=== PATIENT | female | born 1990 | race Caucasian/White ===

== ENCOUNTER → 2018-02-18 21:21 | Outpatient (CLI) | payer MEDICAID ==
[2018-02-18 22:19] LABS: APPEARANCE CLEAR (CLEAR); BILIRUBIN NEGATIVE (NEGATIVE); COLOR YELLOW (YELLOW); GLUCOSE NEGATIVE (NEGATIVE); KETONE MODERATE mg/dL (NEGATIVE); NITRITE NEGATIVE (NEGATIVE); PROTEIN NEGATIVE (NEGATIVE); UROBILINOGEN NORMAL (NORMAL)
[2018-02-18 22:23] LABS: WHITE CELLS - URINE 0-5 /hpf (0-5)
[2018-02-18 22:24] LABS: BACTERIA FEW /hpf (NONE SEEN); EPITHELIAL CELLS 0-5 /hpf (0-5); RED CELLS - URINE OCC /hpf (0-5)
[2018-02-18 23:36] LABS: HEMATOCRIT 35.5 % (36.0-48.0); HEMOGLOBIN 12.1 g/dL (12-16); LYMPHOCYTES 10.6 % (15-50); MCH 27.6 pg (26.0-34.0); MCHC 34.1 g/dL (31.0-37.0); MCV 80.9 fL (80.0-100.0); NEUTROPHILS 82.6 % (40-80); PLATELET COUNT 262 10x3/uL (130-400); RBC 4.39 10x6/uL (4.00-5.40); RDW 15.1 % (11.5-14.5)
[2018-02-18 23:46] LABS: ALBUMIN 2.9 g/dL (3.4-5.0); ALKALINE PHOSPHATASE 63 U/L (46-116); ALT (SGPT) 15 U/L (10-68); CALC OSMOLALITY 269 mosm/kg (275-300); CALCIUM 8.8 mg/dL (8.5-10.1); CARBON DIOXIDE 23.1 mmol/L (21.0-32.0); CHLORIDE - SERUM 103 mmol/L (98-107); CREATININE - SERUM 0.6 mg/dL (0.6-1.3); GLUCOSE 86 mg/dL (74-106); POTASSIUM - SERUM 3.9 mmol/L (3.5-5.1); PROTEIN - SERUM 7.2 g/dL (6.4-8.2); SODIUM 137 mmol/L (136-145); UREA NITROGEN 4 mg/dL (7-18); eGFR NON AFRICAN AMERICAN > 90 mL/min (90-120)
== END | disposition home or self-care (01) ==
LOC: OBSVTIME → D.LDO 21:21 → D.LD 23:31 → OBSVTIME 23:31 → D.LD 23:31
PROVIDERS: Obstetrics & Gynecology
DX: O26.892 Other specified pregnancy related conditions, second trimester (principal); Z3A.21 21 weeks gestation of pregnancy; R10.9 Unspecified abdominal pain; R19.7 Diarrhea, unspecified; R10.13 Epigastric pain

== ENCOUNTER 2018-02-19 00:21 | Outpatient (CLI) | payer MEDICAID ==
[2018-02-19 03:55] LABS: APPEARANCE CLEAR (CLEAR); BILIRUBIN NEGATIVE (NEGATIVE); COLOR YELLOW (YELLOW); GLUCOSE NEGATIVE (NEGATIVE); KETONE NEGATIVE (NEGATIVE); NITRITE NEGATIVE (NEGATIVE); PROTEIN NEGATIVE (NEGATIVE); SPECIFIC GRAVITY 1.005 (1.005-1.020); UROBILINOGEN NORMAL (NORMAL)
== END 2018-02-19 04:18 | disposition home or self-care (01) ==
LOC: D.LD 00:21 → D.LDO 00:21 → D.LD 02-20 11:07
PROVIDERS: Obstetrics & Gynecology
DX: O26.899 Other specified pregnancy related conditions, unspecified trimester (principal); Z3A.00 Weeks of gestation of pregnancy not specified

== ENCOUNTER → 2018-05-02 08:30 | Outpatient (CLI) | payer MEDICAID ==
[~2018-05-02 08:30] MED LIST: PRENATAL COMPLE1 TAB PO
[2018-05-02 09:18] LABS: BASOPHILS 0.1 % (0-2); EOSINOPHILS 0.6 % (0-7); HEMATOCRIT 30.7 % (36.0-48.0); HEMOGLOBIN 10.1 g/dL (12-16); IMMATURE GRANULOCYTES 1.5 % (0-5); LYMPHOCYTES 9.8 % (15-50); MCH 26.7 pg (26.0-34.0); MCHC 32.9 g/dL (31.0-37.0); MCV 81.2 fL (80.0-100.0); MONOCYTES 4.7 % (2-11); NEUTROPHILS 83.3 % (40-80); RBC 3.78 10x6/uL (4.00-5.40); RDW 13.4 % (11.5-14.5); WBC 14.4 10x3/uL (4.8-10.8)
[2018-05-02 09:26] LABS: PLATELET COUNT 330 10x3/uL (130-400)
[2018-05-02 09:53] LABS: ALBUMIN 2.5 g/dL (3.4-5.0); ALKALINE PHOSPHATASE 96 U/L (46-116); ALT (SGPT) 12 U/L (10-68); BILIRUBIN - DIRECT 0.05 mg/dL (0.00-0.30); BILIRUBIN - INDIRECT 0.15 mg/dL (0.00-1.00); CALC OSMOLALITY 274 mosm/kg (275-300); CALCIUM 8.7 mg/dL (8.5-10.1); CARBON DIOXIDE 21.5 mmol/L (21.0-32.0); CHLORIDE - SERUM 105 mmol/L (98-107); CREATININE - SERUM 0.6 mg/dL (0.6-1.3); GLUCOSE 83 mg/dL (74-106); POTASSIUM - SERUM 3.8 mmol/L (3.5-5.1); PROTEIN - SERUM 6.8 g/dL (6.4-8.2); SODIUM 139 mmol/L (136-145); UREA NITROGEN 6 mg/dL (7-18); eGFR NON AFRICAN AMERICAN > 90 mL/min (90-120)
[2018-05-02 09:54] LABS: URIC ACID 4.5 mg/dL (2.6-7.2)
[2018-05-03 09:07] LABS: PROTEIN - URINE 13.2 mg/dL (0.0-11.9)
[2018-06-20 15:44] VITALS: BMI 42.0
== END | disposition home or self-care (01) ==
LOC: D.LDO 08:30
PROVIDERS: Obstetrics & Gynecology
DX: O26.893 Other specified pregnancy related conditions, third trimester (principal); Z3A.31 31 weeks gestation of pregnancy

== ENCOUNTER → 2018-05-07 14:07 | Outpatient (CLI) | payer MEDICAID ==
[2018-06-20 15:44] VITALS: BMI 42.0
== END | disposition home or self-care (01) ==
LOC: D.LDO 14:07
DX: O14.93 Unspecified pre-eclampsia, third trimester (principal); Z3A.32 32 weeks gestation of pregnancy

== ENCOUNTER → 2018-05-10 15:11 | Outpatient (CLI) | payer MEDICAID ==
[2018-06-20 15:44] VITALS: BMI 42.0
== END | disposition home or self-care (01) ==
LOC: D.LDO 15:11
DX: O16.3 Unspecified maternal hypertension, third trimester (principal); Z3A.32 32 weeks gestation of pregnancy

== ENCOUNTER → 2018-05-14 10:50 | Outpatient (CLI) | payer MEDICAID ==
[2018-06-20 15:44] VITALS: BMI 42.0
== END | disposition home or self-care (01) ==
LOC: D.LDO 10:50
DX: O16.3 Unspecified maternal hypertension, third trimester (principal); Z3A.33 33 weeks gestation of pregnancy

== ENCOUNTER → 2018-05-15 09:07 | Outpatient (CLI) | payer OTHER ==
[2018-05-15 10:28] LABS: APPEARANCE HAZY (CLEAR); COLOR YELLOW (YELLOW); NITRITE NEGATIVE (NEGATIVE)
[2018-05-15 10:29] LABS: BACTERIA MODERATE /hpf (NONE SEEN); BILIRUBIN NEGATIVE (NEGATIVE); EPITHELIAL CELLS 0-5 /hpf (0-5); GLUCOSE NEGATIVE (NEGATIVE); KETONE SMALL mg/dL (NEGATIVE); PROTEIN NEGATIVE (NEGATIVE); RED CELLS - URINE RARE /hpf (0-5); UROBILINOGEN NORMAL (NORMAL)
[2018-05-15 10:30] LABS: MUCUS <1+ /lpf (NONE SEEN)
[2018-05-15 12:22] LABS: ALBUMIN 2.6 g/dL (3.4-5.0); ALKALINE PHOSPHATASE 101 U/L (46-116); ALT (SGPT) 12 U/L (10-68); BILIRUBIN - DIRECT 0.06 mg/dL (0.00-0.30); BILIRUBIN - INDIRECT 0.16 mg/dL (0.00-1.00); BILIRUBIN - TOTAL 0.22 mg/dL (0.2-1.3); CALC OSMOLALITY 271 mosm/kg (275-300); CARBON DIOXIDE 23.3 mmol/L (21.0-32.0); CHLORIDE - SERUM 103 mmol/L (98-107); CREATININE - SERUM 0.5 mg/dL (0.6-1.3); POTASSIUM - SERUM 4.2 mmol/L (3.5-5.1); SODIUM 138 mmol/L (136-145); UREA NITROGEN 8 mg/dL (7-18); URIC ACID 4.6 mg/dL (2.6-7.2); eGFR NON AFRICAN AMERICAN > 90 mL/min (90-120)
[2018-05-15 12:23] LABS: GLUCOSE 70 mg/dL (74-106)
[2018-05-15 13:21] LABS: BASOPHILS 0.1 % (0-2); EOSINOPHILS 1.2 % (0-7); HEMATOCRIT 32.5 % (36.0-48.0); HEMOGLOBIN 10.8 g/dL (12-16); IMMATURE GRANULOCYTES 0.8 % (0-5); LYMPHOCYTES 11.5 % (15-50); MCHC 33.2 g/dL (31.0-37.0); MCV 81.3 fL (80.0-100.0); MONOCYTES 5.3 % (2-11); NEUTROPHILS 81.1 % (40-80); PLATELET COUNT 285 10x3/uL (130-400); RDW 13.5 % (11.5-14.5); WBC 14.5 10x3/uL (4.8-10.8)
[2018-05-16 10:08] LABS: PROTEIN - URINE 12.9 mg/dL (0.0-11.9)
[2018-06-20 15:44] VITALS: BMI 42.0
== END | disposition home or self-care (01) ==
LOC: D.LDO 09:07
PROVIDERS: Obstetrics & Gynecology
DX: O26.893 Other specified pregnancy related conditions, third trimester (principal); Z3A.32 32 weeks gestation of pregnancy

== ENCOUNTER → 2018-05-17 16:13 | Outpatient (CLI) | payer OTHER ==
[2018-06-20 15:44] VITALS: BMI 42.0
== END | disposition home or self-care (01) ==
LOC: D.LDO 16:13
DX: O16.3 Unspecified maternal hypertension, third trimester (principal); Z3A.33 33 weeks gestation of pregnancy

== ENCOUNTER → 2018-05-20 14:50 | Outpatient (CLI) | payer OTHER ==
[2018-06-20 15:44] VITALS: BMI 42.0
== END | disposition home or self-care (01) ==
LOC: D.LDO 14:50
DX: O14.93 Unspecified pre-eclampsia, third trimester (principal); Z3A.34 34 weeks gestation of pregnancy

== ENCOUNTER → 2018-05-23 15:46 | Outpatient (CLI) | payer OTHER ==
[2018-06-20 15:44] VITALS: BMI 42.0
== END | disposition home or self-care (01) ==
LOC: D.LDO 15:46
DX: O14.93 Unspecified pre-eclampsia, third trimester (principal); Z3A.34 34 weeks gestation of pregnancy

== ENCOUNTER → 2018-05-27 13:43 | Outpatient (CLI) | payer OTHER ==
[2018-06-20 15:44] VITALS: BMI 42.0
== END | disposition home or self-care (01) ==
LOC: D.LDO 13:43
DX: O14.93 Unspecified pre-eclampsia, third trimester (principal); Z3A.35 35 weeks gestation of pregnancy

== ENCOUNTER → 2018-05-30 14:37 | Outpatient (CLI) | payer OTHER ==
[2018-06-20 15:44] VITALS: BMI 42.0
== END | disposition home or self-care (01) ==
LOC: D.LDO 14:37
DX: O36.8130 Decreased fetal movements, third trimester, not applicable or unspecified (principal); Z3A.35 35 weeks gestation of pregnancy

== ENCOUNTER → 2018-06-03 16:31 | Outpatient (CLI) | payer OTHER ==
[2018-06-20 15:44] VITALS: BMI 42.0
== END | disposition home or self-care (01) ==
LOC: D.LDO 16:31
DX: O10.913 Unspecified pre-existing hypertension complicating pregnancy, third trimester (principal); Z3A.36 36 weeks gestation of pregnancy

== ENCOUNTER → 2018-06-06 15:31 | Outpatient (CLI) | payer OTHER ==
[2018-06-20 15:44] VITALS: BMI 42.0
== END | disposition home or self-care (01) ==
LOC: D.LDO 15:31
DX: O26.893 Other specified pregnancy related conditions, third trimester (principal); Z3A.36 36 weeks gestation of pregnancy

== ENCOUNTER → 2018-06-10 12:20 | Outpatient (CLI) | payer OTHER ==
[2018-06-20 15:44] VITALS: BMI 42.0
== END | disposition home or self-care (01) ==
LOC: D.LDO 12:20
DX: O12.13 Gestational proteinuria, third trimester (principal); Z3A.37 37 weeks gestation of pregnancy

== ENCOUNTER → 2018-06-13 11:37 | Outpatient (CLI) | payer OTHER ==
[2018-06-20 15:44] VITALS: BMI 42.0
== END | disposition home or self-care (01) ==
LOC: D.LDO 11:37
DX: O16.3 Unspecified maternal hypertension, third trimester (principal); Z3A.37 37 weeks gestation of pregnancy

== ENCOUNTER → 2018-06-16 17:37 | Outpatient (CLI) | payer OTHER ==
[2018-06-16 18:36] LABS: BASOPHILS 0.2 % (0-2); EOSINOPHILS 1.4 % (0-7); HEMATOCRIT 30.1 % (36.0-48.0); HEMOGLOBIN 9.7 g/dL (12-16); LYMPHOCYTES 11.3 % (15-50); MCH 25.3 pg (26.0-34.0); MCHC 32.2 g/dL (31.0-37.0); MCV 78.4 fL (80.0-100.0); MONOCYTES 4.7 % (2-11); NEUTROPHILS 81.4 % (40-80); PLATELET COUNT 294 10x3/uL (130-400); RBC 3.84 10x6/uL (4.00-5.40); WBC 14.2 10x3/uL (4.8-10.8)
[2018-06-16 18:54] LABS: ALBUMIN 2.3 g/dL (3.4-5.0); ALKALINE PHOSPHATASE 118 U/L (46-116); ALT (SGPT) 12 U/L (10-68); BILIRUBIN - DIRECT 0.05 mg/dL (0.00-0.30); BILIRUBIN - INDIRECT 0.12 mg/dL (0.00-1.00); BILIRUBIN - TOTAL 0.17 mg/dL (0.2-1.3); CALC OSMOLALITY 269 mosm/kg (275-300); CALCIUM 8.5 mg/dL (8.5-10.1); CHLORIDE - SERUM 105 mmol/L (98-107); CREATININE - SERUM 0.5 mg/dL (0.6-1.3); GLUCOSE 93 mg/dL (74-106); POTASSIUM - SERUM 3.8 mmol/L (3.5-5.1); PROTEIN - SERUM 5.9 g/dL (6.4-8.2); SODIUM 136 mmol/L (136-145); UREA NITROGEN 6 mg/dL (7-18); URIC ACID 4.8 mg/dL (2.6-7.2); eGFR NON AFRICAN AMERICAN > 90 mL/min (90-120)
[2018-06-16 19:05] LABS: APPEARANCE HAZY (CLEAR); BILIRUBIN NEGATIVE (NEGATIVE); COLOR YELLOW (YELLOW); GLUCOSE NEGATIVE (NEGATIVE); KETONE NEGATIVE (NEGATIVE); NITRITE NEGATIVE (NEGATIVE); PROTEIN NEGATIVE (NEGATIVE); SPECIFIC GRAVITY 1.015 (1.005-1.020); UROBILINOGEN NORMAL (NORMAL)
[2018-06-16 19:08] LABS: BACTERIA MODERATE /hpf (NONE SEEN); MUCUS <1+ /lpf (NONE SEEN); RED CELLS - URINE OCC /hpf (0-5)
[2018-06-20 15:44] VITALS: BMI 42.0
== END | disposition home or self-care (01) ==
LOC: D.LDO 17:37
PROVIDERS: Obstetrics & Gynecology
DX: O16.3 Unspecified maternal hypertension, third trimester (principal); Z3A.37 37 weeks gestation of pregnancy; R51 Headache; H53.9 Unspecified visual disturbance; R11.0 Nausea; R60.0 Localized edema

== ENCOUNTER → 2018-06-18 14:30 | Outpatient (CLI) | payer OTHER ==
[2018-06-20 15:44] VITALS: BMI 42.0
== END | disposition home or self-care (01) ==
LOC: D.LDO 14:30
DX: O12.13 Gestational proteinuria, third trimester (principal); Z3A.38 38 weeks gestation of pregnancy

== ENCOUNTER 2018-06-20 15:10 | Inpatient (IN) | payer OTHER ==
[~2018-06-20] VITALS: Ht 172.7 cm; Wt 125.2 kg
--- NOTE | ~2018-06-20 | OP ---
PATIENT NAME: DENISE PAPPAS MEDICAL RECORD: [id number] :89 LOCATION:[id number] ADMISSION DATE:06/20/18 SURGEON: FÉLIX MADDOX MD DATE OF OPERATION: 06/21/2018 PREOPERATIVE DIAGNOSES: 1. Preeclampsia at term. 2. Non-reassuring tracing. POSTOPERATIVE DIAGNOSES: 1. Preeclampsia at term. 2. Non-reassuring tracing. PROCEDURE: Primary low transverse section. SURGEON: Félix Maddox MD EMBEDDED SOFTWARE ARCHITECT: Antonino Peter CRNA ANESTHESIA: Spinal. FINDINGS: Viable male infant, vertex presentation, nuchal cord times 1, Apgars 9 and 9, weight 6 pounds 7 ounces. Unremarkable uterus, tubes and ovaries. SPECIMEN REMOVED: Placenta. SPECIMEN DISPOSITION: Pathology. ESTIMATED BLOOD LOSS: 800-900 cc. FLUIDS: 1500 cc lactated Ringer's. URINE OUTPUT: 350 cc of clear urine. COMPLICATIONS: Uterine atony with Hemabate given. DRAIN: [place] to gravity. INDICATIONS: The patient is a 28-year-old G1, para 0 with preeclampsia at term. The patient was undergoing induction of labor. Regular uterine contractions occurred during the cervical ripening portion of the induction. Decreased variability with decelerations were noted. The patient responded to tocolytic and resuscitative measures. The monitoring was reassuring until the time of section. The patient was taken to the operating room after informed consent was assured. DESCRIPTION OF PROCEDURE: After consent was assured, the patient was taken to the operating room where anesthetic was obtained. She was placed in a leftward lateral tilt and prepped and draped in the usual sterile fashion. An incision was made at the lower abdomen, carried down to the underlying layer of the fascia, which was opened in the midline and extended laterally. The rectus muscles were dissected free of the fascia and then in the midline. The peritoneum was entered and opened and extended. An Abilio O retractor was inserted and tightened. The Tristin all-purpose retractors inserted and the bladder flap was developed. Low transverse hysterotomy was performed after reinsertion OPERATIVE REPORT [id number] DENISE PAPPAS of the bladder flap. Infant was delivered on the abdomen atraumatically. The placenta was delivered via Crede maneuver and the lower segment of the uterus was grasped with ring forceps. The uterus was now closed in a running locked fashion with 0 chromic. An imbricating stitch of #1 chromic was used thereafter. Bleeding vessels are suture ligated with [id number] stitches on the inferior margin and left margin of the incision. FloSeal was placed over the uterine hysterotomy. The rectus bellies were inspected and found to be hemostatic. Sponge, lap, needle counts were correct times 1 at the close of the fascia. The fascia was now closed with looped PDS in a running fashion. Subcutaneous tissues inspected and then reapproximated with plain gut ligature. Sponge count and instrument counts were correct times 2 at the close of the skin with a subcuticular stitch. Sterile dressing was applied. The patient did receive Hemabate after removal of the placenta due to uterine atony. There was good response to this. The patient is taken to the recovery area in stable condition. TRANSINT:[id number] Voice Confirmation ID: [id number] DOCUMENT ID: [id number] FÉLIX MADDOX MD at 1803 CC: [id number] DICTATION DATE: 06/21/182120 GEOTECHNICAL INTERN: 06/21/18 2301 ADM [place] [address] [place] [address]
--- NOTE | ~2018-06-20 | DS ---
PATIENT:DENISE PAPPAS :89 MEDICAL RECORD: [id number] DISCHARGE SUMMARY ADMISSION DATE: 06/20/18 DISCHARGE DATE: 06/23/18 DATE OF ADMISSION: 06/20/2018. DATE OF DISCHARGE: 06/23/2018. ADMISSION DIAGNOSIS: Mild preeclampsia at term. DISCHARGE DIAGNOSIS: Mother delivered at term. PROCEDURE PERFORMED: Primary low transverse section. ATTENDING PHYSICIAN: Ines Maddox MD HISTORY OF PRESENT ILLNESS: Please see the H&P in the chart. SUMMARY OF HOSPITALIZATION: The patient was admitted and underwent induction of labor. By hospital day #1 with the cervical ripening agent and then the beginning of regular uterine contractions, the fetus developed diminished beat to beat variability and decelerations. The responded well to intrauterine resuscitation measures. The NST remained reactive and reassuring up until the time of delivery. At delivery, the was delivered with 9 and 9 Apgars, and subsequently was transferred to a tertiary center for pulmonary hemorrhage. At this time, the patient will be discharged at 36 hours with strict precautions. She did receive 2 units of blood for hematocrit changed to 24. At this time, she feels "great." The patient will be discharged home on Percocet and NSAIDs for pain management. The standard postoperative and precautions have been reviewed and she will follow up in 2 weeks. TRANSINT:[id number] Voice Confirmation ID: [id number] DOCUMENT ID: [id number] INES MADDOX MD at 0652 CC: [id number] DICTATION DATE: 06/23/18 0846 POWER OPERATOR: 06/23/18 1212 DIS IN 06/23/18 [id number] [place] [address]
[2018-06-20 15:44] VITALS: BP 129/83; Ht 172.7 cm; Wt 125.2 kg
[2018-06-20 16:54] LABS: HEMATOCRIT 31.7 % (36.0-48.0); HEMOGLOBIN 10.3 g/dL (12-16); MCH 25.3 pg (26.0-34.0); MCHC 32.5 g/dL (31.0-37.0); MCV 77.9 fL (80.0-100.0); MEAN PLATELET VOLUME 10.7 fL (7.4-10.4); RBC 4.07 10x6/uL (4.00-5.40); RDW 14.3 % (11.5-14.5); WBC 15.8 10x3/uL (4.8-10.8)
[2018-06-20 17:40] LABS: ALBUMIN 2.4 g/dL (3.4-5.0); ALKALINE PHOSPHATASE 120 U/L (46-116); ALT (SGPT) 12 U/L (10-68); BILIRUBIN - DIRECT 0.08 mg/dL (0.00-0.30); BILIRUBIN - INDIRECT 0.13 mg/dL (0.00-1.00); BILIRUBIN - TOTAL 0.21 mg/dL (0.2-1.3); CALC OSMOLALITY 269 mosm/kg (275-300); CALCIUM 8.8 mg/dL (8.5-10.1); CARBON DIOXIDE 21.9 mmol/L (21.0-32.0); CHLORIDE - SERUM 103 mmol/L (98-107); CREATININE - SERUM 0.7 mg/dL (0.6-1.3); PROTEIN - SERUM 6.8 g/dL (6.4-8.2); SODIUM 137 mmol/L (136-145); UREA NITROGEN 6 mg/dL (7-18); URIC ACID 5.4 mg/dL (2.6-7.2); eGFR NON AFRICAN AMERICAN > 90 mL/min (90-120)
[2018-06-20 17:41] LABS: GLUCOSE 66 mg/dL (74-106)
[2018-06-21 22:15] VITALS: BP 144/85
[2018-06-21 22:30] VITALS: BP 130/79
[2018-06-21 22:45] VITALS: BP 131/80
[2018-06-21 23:00] VITALS: BP 140/79
[2018-06-21 23:15] VITALS: BP 126/82
[2018-06-21 23:45] VITALS: BP 144/81
[2018-06-22] VITALS (7 sets, daily range): BP systolic 109–141; BP diastolic 56–84
[2018-06-22 06:15] LABS: RAPID PLASMA REAGIN Non Reactive (Non Reactive)
[2018-06-22 09:27] LABS: HEMATOCRIT 25.6 % (36.0-48.0); MCH 24.6 pg (26.0-34.0); MCHC 31.3 g/dL (31.0-37.0); MCV 78.8 fL (80.0-100.0); MEAN PLATELET VOLUME 10.2 fL (7.4-10.4); RBC 3.25 10x6/uL (4.00-5.40); RDW 14.7 % (11.5-14.5); WBC 16.9 10x3/uL (4.8-10.8)
[2018-06-23] VITALS: BP 128/65
[2018-06-23 06:15] VITALS: BP 122/75
[2018-06-23 07:05] VITALS: BP 117/59
== END 2018-06-23 09:07 | disposition home or self-care (01) | DRG 765 ==
LOC: D.LD 15:10 → D.WS 06-21 22:28 → D.LD 06-22 11:35
PROVIDERS: Obstetrics & Gynecology
PROC: 10D00Z1 Extraction of Products of Conception, Low, Open Approach (ICD-10-PCS; principal; 2018-06-20)
PROC: 3E0P7VZ Introduction of Hormone into Female Reproductive, Via Natural or Artificial Opening (ICD-10-PCS; 2018-06-20)
DX: O14.04 Mild to moderate pre-eclampsia, complicating childbirth (principal); R71.0 Precipitous drop in hematocrit; Z37.0 Single live birth; O76 Abnormality in fetal heart rate and rhythm complicating labor and delivery; Z3A.38 38 weeks gestation of pregnancy; O75.89 Other specified complications of labor and delivery

== ENCOUNTER → 2018-07-25 14:47 | Outpatient (CLI) | payer OTHER ==
[2018-06-20 15:44] VITALS: BMI 42.0
== END | disposition home or self-care (01) ==
LOC: D.MRI 14:47
DX: G35 Multiple sclerosis (principal)

== ENCOUNTER → 2019-12-18 15:35 | Outpatient (CLI) | payer OTHER ==
[2018-06-20 15:44] VITALS: BMI 42.0
== END | disposition home or self-care (01) ==
LOC: D.MRI 15:35
PROVIDERS: ATTEND Psychiatry & Neurology Neurology
DX: G35 Multiple sclerosis (principal)

== ENCOUNTER → 2021-01-13 14:30 | Outpatient (CLI) | payer BC ==
[2018-06-20 15:44] VITALS: BMI 42.0
== END | disposition home or self-care (01) ==
LOC: D.MRI 12-28 16:00
PROVIDERS: ATTEND Psychiatry & Neurology Neurology
DX: G35 Multiple sclerosis (principal)

== ENCOUNTER → 2021-04-22 12:34 | Outpatient (CLI) | payer BC ==
[2018-06-20 15:44] VITALS: BMI 42.0
== END | disposition home or self-care (01) ==
LOC: D.LAB 12:34
PROVIDERS: ATTEND Internal Medicine Pulmonary Disease
DX: Z11.52 Encounter for screening for COVID-19 (principal)

== ENCOUNTER → 2021-04-28 13:32 | Outpatient (CLI) | payer BC ==
[2018-06-20 15:44] VITALS: BMI 42.0
== END | disposition home or self-care (01) ==
LOC: D.RT 13:32
PROVIDERS: ATTEND Internal Medicine Pulmonary Disease
DX: R06.09 Other forms of dyspnea (principal)